=== PATIENT | male | born 2000 | race Caucasian/White ===

== ENCOUNTER 2022-11-09 20:44 | Emergency (ER) | payer OTHER ==
[2022-11-09 22:08] LABS: Bilirubin Negative (Negative); Blood, Urine Negative (Negative); Clarity Clear (Clear); Glucose, Urine (Dipstick) Normal (Negative); Ketone, Urine Negative (Negative); Leukocyte Negative Leu/uL (Negative); Nitrite Negative (Negative); Protein, Urine (Dipstick) 20 mg/dL (Neg-Trace); Specific Gravity, Urine 1.034 (1.002-1.036); pH, Urine 5.5 (5.0-9.0)
== END 2022-11-09 22:34 | disposition home or self-care (01) ==
LOC: ERS 20:44
DX: S30.22XA Contusion of scrotum and testes, initial encounter (principal)
CPT/HCPCS: 76870; 81003; 87086; 93976

== ENCOUNTER 2024-03-29 20:54 | Emergency (ER) | payer OTHER, SELFPAY | END 2024-03-29 23:17 | disposition home or self-care (01) | LOC: ERS 20:54 | DX: J10.1 Influenza due to other identified influenza virus with other respiratory manifestations (principal); R07.9 Chest pain, unspecified | CPT/HCPCS: 71045; 93005 ==